=== PATIENT | male | born 1995 | race Hispanic/Latino ===

== ENCOUNTER 2021-04-05 19:28 | Inpatient (IN) | payer SELFPAY ==
[2021-04-05] MEDS ORDERED: ACETAMINOPHEN 500 MG TAB ONE (20:15)
--- NOTE | 2021-04-05 20:33 | ER ---
Nurse's Notes [facility] Name: Richy Lazo Age: 25 yrs Sex: Male : 1995 Arrival Date: 04/05/2021 Time: 19:38 Bed 23 Private MD: Diagnosis: Coronavirus infection, unspecified;Other viral pneumonia;Pneumonia due to SARS-associated coronavirus;Hypoxemia Presentation: 04/05 19:47 Chief complaint: Patient states: he has SOB, fever, cough, congestion, fatigue since bb was diagnosed with COVID today. Coronavirus screen: Client reports previous positive COVID test result. Date of collection: April 05, 2021. Ebola Screen: No symptoms or risks identified at this time. Initial Sepsis Screen: Does the patient meet any 2 criteria? RR > 20 per min. HR > 90 bpm. Yes Does the patient have a suspected source of infection? Yes: Other: pt is COVID positive. Risk Assessment: Do you want to hurt yourself or someone else? Patient reports no desire to harm self or others. Onset of symptoms was March 31, 2021. 19:47 Method Of Arrival: Wheelchair bb 19:47 Acuity: STONEY 2 bb Triage Assessment: 19:50 General: Appears distressed, uncomfortable, Behavior is cooperative. Pain: Denies pain. bb Cardiovascular: Capillary refill < 3 seconds Patient's skin is warm and dry. Respiratory: Reports shortness of breath Respiratory effort is labored, Respiratory pattern is tachypnea Onset: The symptoms/episode began/occurred last , the patient has moderate shortness of breath. Musculoskeletal: Circulation, motion, and sensation intact. Historical: - Allergies: 19:50 No Known Allergies; bb - Home Meds: 19:50 None [Active]; bb - PMHx: 19:50 None; bb - PSHx: 19:50 None; bb - Immunization history:: Adult Immunizations up to date. - Social history:: Smoking status: Patient denies any tobacco usage or history of. Screenin:21 Abuse screen: Denies threats or abuse. Denies injuries from another. Nutritional zb screening: No deficits noted. Tuberculosis screening: No symptoms or risk factors identified. Fall Risk None identified. Assessment: 20:15 General: Appears uncomfortable, obese, Reports chills for 2-3 days, fever for 2-3 days, zb feeling ill for 2-3 days, fatigue for 2-3 days. Pain: Denies pain. Neuro: Level of Consciousness is awake, alert, obeys commands, Oriented to person, place, time, situation. Cardiovascular: Reports shortness of breath, Denies chest pain, nausea, syncope, vomiting, Capillary refill < 3 seconds Patient's skin is warm and dry. Rhythm is sinus tachycardia. Respiratory: Airway is patent Respiratory effort is shallow, Respiratory pattern is tachypnea Breath sounds are diminished bilaterally. Onset: The symptoms/episode began/occurred today, the patient has severe shortness of breath. GI: Abdomen is obese, Bowel sounds present X 4 quads. Reports diarrhea. EENT: Reports nasal congestion. Derm: Skin is intact, is healthy with good turgor, Skin is diaphoretic, Skin is normal, Skin temperature is hot. Musculoskeletal: Circulation, motion, and sensation intact. Range of motion: intact in all extremities. 20:20 Reassessment: patient placed on 2L NC sating at 86-88. zb 20:25 Reassessment: increase o2 5-6L NC sating no change in o2 level sating at 87-89%. zb 20:48 Reassessment: patient placed on non-rebreather to help with breathing. zb 21:10 Reassessment: RT states he was going to leave the patient on Non-rebreather because zb patient is sating between 88-94%. 23:03 Reassessment: notified RT patient is RR is increasing patient is sating at 88-94% on zb non-breather patient appears to be working to breath more. 23:05 Reassessment: Notified ECP of patient swearing, increased work of breathing and low zb saturations with non-breather. sating between 89-93%. Verbal order for BPAP. 23:09 Reassessment: Notified RT of ECP order for BPAP. zb 23:25 Reassessment: patient placed on on BIPAP and moved over to room #23. zb Vital Signs: 19:47 BP 138 / 87; Pulse 126; Resp 38 S; Temp 102.2; Pulse Ox 87% on R/A; Weight 136.08 kg bb (R); Height 5 ft. 8 in. (172.72 cm) (R); Pain 0/10; 20:20 BP 122 / 109; Pulse 123; Resp 35; Pulse Ox 89% 2 lpm ; zb 20:48 Pulse 111; Resp 32; Pulse Ox 96% on 14% Non-rebreather mask; zb 23:04 BP 114 / 67; Pulse 101; Resp 34; Temp 98.9; Pulse Ox 92% on 15% Nebulizer Mask; zb 04/07 20:49 BP 110 / 74; Pulse 89; Resp 26; Temp 98.8; Pulse Ox 98% ; ak2 04/05 19:47 Body Mass Index 45.61 (136.08 kg, 172.72 cm) bb ED Course: 04/05 19:38 Patient arrived in ED. am4 19:50 Triage completed. bb 19:50 Arm band placed on Patient placed in an exam room, on a stretcher, on oxygen, on pulse bb oximetry. Family accompanied patient. 19:55 Gilson Reyna MD is Attending Physician. tw4 20:10 Sandra Simon RN is Primary Nurse. zb 20:22 CXR XRAY In Process Unspecified. EDMS 20:22 Patient has correct armband on for positive identification. Placed in gown. Bed in low zb position. Call light in reach. Side rails up X 1. Pulse ox on. NIBP on. Door closed. Noise minimized. 20:31 Edward Catherine DO is Hospitalizing Provider. tw4 21:00 Inserted saline lock: 20 gauge in right antecubital area, using aseptic technique. dh4 Blood collected. Missed attempt(s): 20 gauge in left antecubital area. 22:50 IV was discontinued by the patient. zb 23:00 Report given to DREW Jonas. zb 23:03 Inserted saline lock: 22 gauge in right antecubital area, using aseptic technique. zb Administered Medications: 20:08 Drug: Tylenol 1000 mg Route: PO; bb 20:41 Drug: NS 0.9% 1000 ml Route: IV; Rate: 1 bolus; Site: right antecubital; zb 21:30 Follow up: Response: No adverse reaction; IV Status: Completed infusion; IV Intake: zb 1000ml 20:41 Drug: SOLU-Medrol (methylPrednisoLONE) 125 mg Route: IVP; Site: right antecubital; zb 21:20 Follow up: Response: No adverse reaction; Marked relief of symptoms zb Intake: 21:30 IV: 1000ml; Total: 1000ml. zb Outcome: 20:32 Decision to Hospitalize by Provider. tw4 04/08 22:04 Patient left the ED. iw Signatures: Dispatcher [employer] EDKrystyna Kulkarni RN RN bb Williams, Irene, RN RN iw Wadley, Terrence, MD MD tw4 Vargas Tan4 Sandra Simon RN RN zb Martinez, Ashley 4 César Mays sc2 Corrections: (The following items were deleted from the chart) 04/05 21:15 21:05 Reassessment: RT paged patient placed on a ventri mask stating at 95% zb zb 23:39 23:04 BP 114 / 67; Pulse 101bpm; Resp 34bpm; Pulse Ox 92% 02 15% Nebulizer Mask; zb zb 04/06 00:08 04/05 23:00 Report given to DREW Cortesb
[2021-04-05] MEDS ORDERED: NA CHLORIDE 0.9% 1,000 ML ONE (20:46)
[2021-04-05] MEDS ORDERED: METHYLPREDNISOLONE 125 MG INJ ONE (20:46)
--- NOTE | 2021-04-05 21:00 | RAD REPORT ---
EXAM DESCRIPTION: RAD - Chest Single View - 04/05/2021 8:22 pm CLINICAL HISTORY: COUGH COMPARISON: Two view chest August 2016 TECHNIQUE: AP portable chest image was obtained 04/05/2021 8:22 pm . FINDINGS: Lung volumes are very low. Linear stranding could be atelectasis or possibly infiltrate in the lower left lung field. Upper lobe vasculature within normal limits. Heart size within normal orellana its for exam limitations. No pneumothorax or large pleural effusion. No acute bony abnormality seen. No acute aortic findings suspected. IMPRESSION: Portable examination is extremely limited due to body habitus and very low lung volumes. Atelectasis is present. A left base infiltrate cannot be excluded.
[2021-04-05 21:29] LABS: Albumin 3.3 g/dL (3.4-5.0); Bilirubin Direct 0.2 mg/dL (0-0.2); Bilirubin Total 0.5 mg/dL (0.2-1.0); Potassium 3.2 mmol/L (3.5-5.1); Protein, Total 9.2 g/dL (6.4-8.2)
[2021-04-05 22:01] LABS: Ferritin 881.2 ng/mL (26-388)
[2021-04-05 23:00] VITALS: BMI 45.6
[2021-04-05] MEDS ORDERED: MELATONIN 5 MG TABLET PO PRN (23:02)
[2021-04-05] MEDS ORDERED: ONDANSETRON 4 MG/2 ML VIAL IV PRN (23:02)
[2021-04-05] MEDS ORDERED: ACETAMINOPHEN 500 MG TAB PO PRN (23:02)
[2021-04-05] MEDS ORDERED: HYDROCODONE/APAP 7.5/325 MG TAB PO PRN (23:02)
--- NOTE | 2021-04-06 00:26 | P.HP ---
Certification for Inpatient Patient admitted to: Inpatient With expected LOS: >2 Midnights Patient will require the following post-hospital care: None Practitioner: I am a practitioner with admitting privileges, knowledge of patient current condition, hospital course, and medical plan of care. Services: Services provided to patient in accordance with Admission requirements found in Title 42 Section 412.3 of the Code of Federal Regulations Patient History Date of Service: 04/05/21 Reason for admission: COVID pneumonia History of Present Illness: 25-year-old obese male without any significant past medical or surgical history presents emergency department for shortness of breath. Patient reports not feeling well since last , had COVID test today and was positive. Patient evaluated in the emergency department, patient noted to be hypoxic upon arrival to the emergency department with room air saturations in the 80s. Labs significant for potassium 3.2 creatinine 1.47 GFR 57 glucose 119 ferritin 881.2 C-reactive protein 105 pro calcitonin 0.08 chest x-ray demonstrates multifocal pneumonia. Patient initially was on nasal cannula but progressing required more oxygen during his emergency department stay and is now on BiPAP although he is tolerating this well at this time. ED provider wishes to admit for further evaluation and management. Allergies No Known Allergies Allergy (Verified 04/05/21 23:01) Home Medications: NK [No Home Meds] 04/05/21 - Past Medical/Surgical History -: none -: none Psychosocial/ Personal History: Patient lives at home with his family - Family History Father History Unknown: Yes - Social History Smoking Status: Never smoker Alcohol use: No CD- Drugs: No Caffeine use: Yes Place of Residence: Home Review of Systems 10-point ROS is otherwise unremarkable General: Fever, Chills, Weakness, Malaise Respiratory: Cough, Shortness of Breath, SOB with Excertion Physical Examination - Physical Exam General: Alert, In no apparent distress, Oriented x3 HEENT: Atraumatic, PERRLA, Mucous membr. moist/pink, EOMI, Sclerae nonicteric Neck: Supple, 2+ carotid pulse no bruit, No LAD, Without JVD or thyroid abnormality Respiratory: Clear to auscultation bilaterally, Diminished, Other (Tachypnea, dyspnea) Cardiovascular: Regular rate/rhythm, Normal S1 S2 Gastrointestinal: Normal bowel sounds, No tenderness Musculoskeletal: No tenderness Integumentary: No rashes Neurological: Normal gait, Normal speech, Normal strength at 5/5 x4 extr, Normal tone, Normal affect Lymphatics: No axilla or inguinal lymphadenopathy - Studies Laboratory Data (last 24 hrs) 04/05/21 20:45: Sodium 136, Potassium 3.2 L, BUN 18, Creatinine 1.47 H, Glucose 119 H, Total Bilirubin 0.5, AST 43 H, ALT 31, Alkaline Phosphatase 52, Lipase 233 04/05/21 19:56: WBC Cancelled, Hgb Cancelled, Hct Cancelled, Plt Count Cancelled Assessment and Plan - Plan Assessment Acute hypoxic respiratory failure secondary to COVID-19 pneumonia Plan Acute hypoxic respiratory failure secondary to COVID-19 pneumonia: Continue with supplemental oxygen as needed, titrate sats greater than 93%. Continue IV steroids, oral supplements, ivermectin. Pulmonology consulted for additional assistance with medical management. Will trend CRP, ferritin levels. DVT prophylaxis Lovenox 40 mg subcutaneous once daily. Patient will likely have prolonged hospital stay. Discharge Plan: Home Plan to discharge in: Greater than 2 days - Advance Directives Does patient have a Living Will: No Does patient have a Durable POA for Healthcare: No - Code Status/Comfort Care Code Status Assessed: Yes Critical Care: No Time Spent Managing Pts Care (In Minutes): 55
[2021-04-06 01:01] LABS: Absolute Lymphocytes (CBC) 0.6 K/uL (0.7-4.9); Basophils % 0.2 % (0-1.3); Hematocrit 38.7 % (39.6-49.0); Lymphocytes % 9.6 % (15.3-44.8); MPV 9.8 fL (7.6-11.3)
[2021-04-06 02:27] LABS: Blood Morphology Comment NOT SEEN (NOT SEEN); Platelet Estimate ADEQ
[2021-04-06 07:05] LABS: Bilirubin Total 0.4 mg/dL (0.2-1.0); Ferritin 884.1 ng/mL (26-388); Magnesium 2.7 mg/dL (1.8-2.4); Potassium 3.9 mmol/L (3.5-5.1); Protein, Total 8.5 g/dL (6.4-8.2)
[2021-04-06] MEDS ORDERED: ASPIRIN 81 MG CHEWABLE TABLET ONE (08:15)
[2021-04-06] MEDS ORDERED: VITAMIN D 1000 UNIT TAB ONE ×2 (08:15→09:27)
[2021-04-06] MEDS ORDERED: HYDROCORTISONE SUC 100 MG INJ ONE (08:15)
[2021-04-06] MEDS ORDERED: ZINC SULFATE 220 MG CAP ONE (08:15)
[2021-04-06] MEDS ORDERED: ASCORBIC ACID 500 MG TABLET ONE ×4 (08:15→20:27)
[2021-04-06] MEDS ORDERED: THIAMINE HCL 100 MG TABLET ONE ×2 (08:15→09:28)
[2021-04-06] MEDS ORDERED: ENOXAPARIN 40 MG/0.4 ML SQ ONE (08:16)
[2021-04-06] MEDS ORDERED: POTASSIUM CL SA 10 MEQ TAB PO ONE ×2 (08:17→09:00)
[2021-04-06] MEDS ORDERED: METHYLPREDNISOLONE 40 MG INJ IV SCH (09:00)
[2021-04-06] MEDS: ASPIRIN EC 81 MG TAB PO SCH (09:00)
[2021-04-06] MEDS ORDERED: ENOXAPARIN 40 MG/0.4 ML SQ SCH (09:00)
[2021-04-06] MEDS: THIAMINE HCL 100 MG TABLET PO SCH (09:03)
[2021-04-06] MEDS: VITAMIN D 1000 UNIT TAB PO SCH (09:03)
[2021-04-06] MEDS: ZINC SULFATE 220 MG CAP PO SCH (09:03)
[2021-04-06] MEDS: ASCORBIC ACID 500 MG TABLET PO SCH ×4 (09:04→20:16)
[2021-04-06] MEDS: IVERMECTIN 3 MG TABLET PO SCH (09:05)
[2021-04-06] MEDS ORDERED: METHYLPREDNISOLONE 40 MG INJ ONE ×3 (09:27→20:27)
[2021-04-06] MEDS: BENZONATATE 100 MG CAP PO PRN (09:35)
[2021-04-06] MEDS ORDERED: BENZONATATE 100 MG CAP PO ONE (09:37)
--- NOTE | 2021-04-06 11:22 | P.PN ---
Subjective Date of Service: 04/06/21 Primary Care Provider: none Chief Complaint: COVID pneumonia Subjective: Improving (Currently on BIPAP) Physical Examination - Vital Signs Temperature: 98.3 F Blood Pressure: 113/63 Pulse: 103 Respirations: 26 Pulse Ox (%): 92 - Studies Laboratory Data (last 24 hrs) 04/05/21 20:45: Sodium 136, Potassium 3.2 L, BUN 18, Creatinine 1.47 H, Glucose 119 H, Total Bilirubin 0.5, AST 43 H, ALT 31, Alkaline Phosphatase 52, Lipase 233 04/05/21 19:56: WBC Cancelled, Hgb Cancelled, Hct Cancelled, Plt Count Cancelled Assessment & Plan Discharge Plan: Home Plan to discharge in: Greater than 2 days Physician Review Additional Text: Physical exam: Currently on BiPAP at 100%. Patient does not appear labored. Heart: Regular rate rhythm Lungs: Clear. On BiPAP Abdomen: Soft nontender Extremities: Good range motion to upper lower extremities without any focal deficits. Mentation: Appropriate and at baseline Impression: Acute hypoxic respiratory failure secondary to COVID-19 pneumonia Hyperglycemia suspect pre diabetes Obesity, BMI 45.6 Plan Acute hypoxic respiratory failure secondary to COVID-19 pneumonia: Continue with oxygen. Will wean down to high-flow oxygen. Continue IV steroids, supplements, ivermectin. Case discussed with pulmonology. Will monitor for the next 24 hr. Likely no need for Remdesivir or Acterma. Continue DVT prophylaxis-Lovenox. Will monitor the patient closely. If his condition declines will consider Remdesivir. Education provided. Will continue to monitor closely. Will trend CRP and ferritin. Will continue to reassess. Anticipate improvement over the next 3-5 days. Hyperglycemia suspect pre diabetes: Will check A1c. Blood sugar slightly elevated. Will monitor this closely Obesity, BMI 45.6: Will address lifestyle modification education. Time Spent Managing Pts Care (In Minutes): 55
[2021-04-06 11:33] LABS: Urine Appearance CLOUDY (Clear); Urine Bilirubin NEGATIVE (Negative); Urine Blood NEGATIVE (Negative); Urine Color DK YELLOW (Yellow); Urine Glucose NEGATIVE (Negative); Urine Protein 3+ (Negative); Urine Specific Gravity >=1.030 (1.005-1.030); Urine Urobilinogen 0.2 mg/dL (0.2-1.0); Urine pH 5.5 (5.0-7.0)
[2021-04-06 11:35] LABS: Urine Microscopic Reflex ORDER UMIC
[2021-04-06 11:45] LABS: Urine Bacteria 20-50 /HPF (NONE SEEN); Urine RBC NONE SEEN /HPF (NONE SEEN)
[2021-04-06] MEDS: METHYLPREDNISOLONE 125 MG INJ IV SCH ×3 (12:18→20:16)
--- NOTE | 2021-04-06 12:25 | P.CNS ---
Date of Consult: 04/06/21 Reason for Consult: REsp failure from COVID Primary Care Provider: none Chief Complaint: COVID pneumonia History of Present Illness: AGE 25 AW resp failure from COVID. REnal failure . Currently on BIPAP doign well Allergies No Known Allergies Allergy (Verified 04/05/21 23:01) Home Medications: NK [No Home Meds] 04/05/21 - Past Medical/Surgical History Diabetic: No -: none -: none Psychosocial/ Personal History: Patient lives at home with his family - Family History Mother Medical History: Diabetes Father History Unknown: Yes - Social History Alcohol use: No CD- Drugs: No Caffeine use: Yes Place of Residence: Home Review of Systems Respiratory: Cough, Shortness of Breath Physical Examination Temp Pulse Resp BP Pulse Ox 98.3 F 103 H 26 H 113/63 92 04/06/21 11:22 04/06/21 11:22 04/06/21 11:22 04/06/21 11:22 04/06/21 11:22 Laboratory Data (last 24 hrs) 04/05/21 20:45: Sodium 136, Potassium 3.2 L, BUN 18, Creatinine 1.47 H, Glucose 119 H, Total Bilirubin 0.5, AST 43 H, ALT 31, Alkaline Phosphatase 52, Lipase 233 04/05/21 19:56: WBC Cancelled, Hgb Cancelled, Hct Cancelled, Plt Count Cancelled - Problems (1) COVID-19 Current Visit: Yes Status: Acute Plan: Age 25 AW resp failure from COVID. Cont to titrate O2 daowm Sima Steroids, add Remdesmir. CXRY reviewed. Fully anticoagualte. Reanl failureRenal failure Start on IV fluids, Poss DC 1-2 days
[2021-04-06] MEDS ORDERED: METHYLPREDNISOLONE 125 MG INJ ONE (12:37)
[2021-04-06] MEDS ORDERED: REMDESIVIR (EUA) 200 MG in NA CHLORIDE 0.9% 250 ML IV ONE (13:00)
[2021-04-06] MEDS: NACHLORIDE 0.45% 1,000 ML IV SCH (13:04)
[2021-04-06] MEDS ORDERED: NACHLORIDE 0.45% 1,000 ML IV ONE (13:15)
[2021-04-06] MEDS ORDERED: GUAIFENESIN 600 MG SA TAB PO ONE ×2 (19:19→20:28)
[2021-04-06] MEDS: APIXABAN 5 MG TABLET PO SCH (20:16)
[2021-04-06] MEDS ORDERED: APIXABAN 5 MG TABLET ONE (20:27)
[2021-04-07] MEDS: BENZONATATE 100 MG CAP PO PRN ×2 (01:40→20:44)
[2021-04-07] MEDS: NACHLORIDE 0.45% 1,000 ML IV SCH ×2 (01:42→13:12)
[2021-04-07] MEDS ORDERED: BENZONATATE 100 MG CAP PO ONE ×2 (01:58→20:49)
[2021-04-07] MEDS ORDERED: NACHLORIDE 0.45% 1,000 ML IV ONE ×2 (02:01→12:30)
[2021-04-07 04:32] LABS: Absolute Lymphocytes (CBC) 0.8 K/uL (0.7-4.9); Basophils % 0.1 % (0-1.3); Hematocrit 34.9 % (39.6-49.0); Lymphocytes % 6.8 % (15.3-44.8); MPV 10.1 fL (7.6-11.3); RBC Red Blood Cell Count 3.98 M/uL (4.33-5.43)
[2021-04-07 04:47] LABS: Albumin 2.7 g/dL (3.4-5.0); Bilirubin Direct 0.1 mg/dL (0-0.2); Bilirubin Total 0.4 mg/dL (0.2-1.0); C-Reactive Protein 56.8 mg/L (<3.00); Ferritin 822.7 ng/mL (26-388); Magnesium 2.6 mg/dL (1.8-2.4); Potassium 3.7 mmol/L (3.5-5.1); Protein, Total 7.7 g/dL (6.4-8.2)
[2021-04-07] MEDS: VITAMIN D 1000 UNIT TAB PO SCH (08:21)
[2021-04-07] MEDS: ZINC SULFATE 220 MG CAP PO SCH (08:22)
[2021-04-07] MEDS: ASPIRIN EC 81 MG TAB PO SCH (08:22)
[2021-04-07] MEDS: ASCORBIC ACID 500 MG TABLET PO SCH ×4 (08:22→20:44)
[2021-04-07] MEDS: THIAMINE HCL 100 MG TABLET PO SCH (08:22)
[2021-04-07] MEDS: APIXABAN 5 MG TABLET PO SCH ×2 (08:22→20:43)
[2021-04-07] MEDS: METHYLPREDNISOLONE 125 MG INJ IV SCH ×3 (08:23→20:44)
[2021-04-07] MEDS ORDERED: THIAMINE HCL 100 MG TABLET ONE (08:26)
[2021-04-07] MEDS ORDERED: METHYLPREDNISOLONE 125 MG INJ ONE ×2 (08:26→12:28)
[2021-04-07] MEDS ORDERED: ZINC SULFATE 220 MG CAP ONE (08:26)
[2021-04-07] MEDS ORDERED: ASPIRIN EC 81 MG TAB PO ONE (08:26)
[2021-04-07] MEDS ORDERED: ASCORBIC ACID 500 MG TABLET ONE ×4 (08:27→20:49)
[2021-04-07] MEDS ORDERED: POTASSIUM CL SA 10 MEQ TAB PO ONE ×2 (08:27→09:00)
[2021-04-07] MEDS ORDERED: VITAMIN D 1000 UNIT TAB ONE (08:27)
[2021-04-07] MEDS ORDERED: APIXABAN 5 MG TABLET ONE ×2 (08:27→20:49)
[2021-04-07] MEDS ORDERED: ACETAMINOPHEN 500 MG TAB ONE (08:35)
[2021-04-07] MEDS: REMDESIVIR (EUA) 100 MG in NA CHLORIDE 0.9% 250 ML IV SCH (08:49)
[2021-04-07] MEDS ORDERED: REMDESIVIR (EUA) 100 MG in NA CHLORIDE 0.9% 250 ML IV SCH (09:00)
--- NOTE | 2021-04-07 13:03 | P.PN ---
Subjective Date of Service: 04/07/21 Primary Care Provider: none Chief Complaint: COVID pneumonia Subjective: Improving (Improving doing better sitting upright conversing oxygen requirements are declining) Review of Systems General: Weakness Respiratory: Shortness of Breath Physical Examination - Vital Signs Temperature: 98.6 F Blood Pressure: 114/71 Pulse: 100 Respirations: 24 Pulse Ox (%): 91 Assessment & Plan - Problems (Diagnosis) (1) COVID-19 Current Visit: Yes Status: Acute Plan: Respiratory failure patient's condition is improving continue titrate his O2 down renal function improving vital signs labs reviewed
--- NOTE | 2021-04-07 14:26 | P.PN ---
Subjective Date of Service: 04/07/21 Primary Care Provider: none Chief Complaint: COVID pneumonia Subjective: Improving, Doing well Physical Examination - Vital Signs Temperature: 98.6 F Blood Pressure: 114/71 Pulse: 100 Respirations: 24 Pulse Ox (%): 91 Assessment & Plan Discharge Plan: Home Plan to discharge in: 72 Hours Physician Review Additional Text: Physical exam: Patient has been tapered off BiPAP. Now on high flow at 80%. Patient does not appear labored. Heart: Regular rate rhythm Lungs: Clear. High flow Abdomen: Soft nontender Extremities: Good range motion to upper lower extremities without any focal deficits. Mentation: Appropriate and at baseline Impression: Acute hypoxic respiratory failure secondary to COVID-19 pneumonia Hyperglycemia suspect pre diabetes Acute renal insufficiency likely dehydration Obesity, BMI 45.6 Plan Acute hypoxic respiratory failure secondary to COVID-19 pneumonia: Patient continues to improve. Patient has been weaned off BiPAP now on high flow. Continue IV steroids and supplementation. Pulmonology recommends remdesivir. Continue with medication. Will monitor closely. Continue to wean off oxygen. DVT prophylaxis changed to Eliquis. Will monitor LFTs while on remdesivir. Continue to monitor and trend CRP and ferritin. Recheck chest x-ray tomorrow. Anticipate improvement over the next 72 hours. Hyperglycemia suspect pre diabetes: Will check A1c. Blood sugar slightly elevated. Will monitor this closely Acute renal insufficiency likely dehydration: Continue IV fluids. Renal function improved. Will monitor closely. Obesity, BMI 45.6: Will address lifestyle modification education. Time Spent Managing Pts Care (In Minutes): 55
[2021-04-07] MEDS ORDERED: METHYLPREDNISOLONE 40 MG INJ ONE (20:49)
[2021-04-08] MEDS ORDERED: NACHLORIDE 0.45% 1,000 ML IV ONE (01:18)
[2021-04-08] MEDS: NACHLORIDE 0.45% 1,000 ML IV SCH (05:00)
[2021-04-08 05:55] LABS: Absolute Lymphocytes (CBC) 0.9 K/uL (0.7-4.9); Basophils % 0.1 % (0-1.3); Hematocrit 33.2 % (39.6-49.0); Lymphocytes % 7.2 % (15.3-44.8); MPV 9.5 fL (7.6-11.3); RBC Red Blood Cell Count 3.79 M/uL (4.33-5.43)
[2021-04-08 06:21] LABS: ALT/SGPT 39 U/L (12-78); AST/SGOT 32 U/L (15-37); Albumin 2.6 g/dL (3.4-5.0); Alkaline Phosphatase 47 U/L (45-117); BUN Blood Urea Nitrogen 33 mg/dL (7-18); Bicarbonate 26 mmol/L (21-32); Bilirubin Direct 0.1 mg/dL (0-0.2); Bilirubin Total 0.4 mg/dL (0.2-1.0); Ferritin 631.2 ng/mL (26-388); Glucose Level 137 mg/dL (74-106); Magnesium 2.6 mg/dL (1.8-2.4); Potassium 3.8 mmol/L (3.5-5.1); Sodium Level 143 mmol/L (136-145)
[2021-04-08] MEDS ORDERED: GUAIFENESIN/CODEINE 5ML UCUP PO PRN (06:30)
[2021-04-08 07:41] LABS: Blood Morphology Comment NOT SEEN (NOT SEEN); Platelet Estimate ADEQ; White Blood Cell Scan OK (OK)
[2021-04-08] MEDS: IVERMECTIN 3 MG TABLET PO SCH (08:00)
--- NOTE | 2021-04-08 08:29 | RAD REPORT ---
EXAM DESCRIPTION: RAD - Chest Single View - 04/08/2021 6:02 am CLINICAL HISTORY: Follow up COVID Chest pain. COMPARISON: Chest Single View dated 04/05/2021; Chest Pa And Lat (2 Views) dated 09/13/2016 FINDINGS: Portable technique limits examination quality. Significant bilateral pulmonary opacities are present, mildly worsened since the comparative study. T he findings are most compatible with underlying COVID infection. The heart is mildly prominent in siz e. No displaced fractures.
[2021-04-08] MEDS: METHYLPREDNISOLONE 125 MG INJ IV SCH ×3 (09:00→21:00)
[2021-04-08] MEDS: ASPIRIN EC 81 MG TAB PO SCH (09:00)
[2021-04-08] MEDS: THIAMINE HCL 100 MG TABLET PO SCH (09:00)
[2021-04-08] MEDS: REMDESIVIR (EUA) 100 MG in NA CHLORIDE 0.9% 250 ML IV SCH (09:00)
[2021-04-08] MEDS ORDERED: POTASSIUM CL SA 10 MEQ TAB PO ONE ×2 (09:00→09:39)
[2021-04-08] MEDS: ZINC SULFATE 220 MG CAP PO SCH (09:00)
[2021-04-08] MEDS: VITAMIN D 1000 UNIT TAB PO SCH (09:00)
[2021-04-08] MEDS: APIXABAN 5 MG TABLET PO SCH ×2 (09:00→21:00)
[2021-04-08] MEDS: ASCORBIC ACID 500 MG TABLET PO SCH ×5 (09:00→22:26)
[2021-04-08] MEDS ORDERED: ASPIRIN EC 81 MG TAB PO ONE (09:38)
[2021-04-08] MEDS ORDERED: ZINC SULFATE 220 MG CAP ONE (09:38)
[2021-04-08] MEDS ORDERED: VITAMIN D 1000 UNIT TAB ONE (09:39)
[2021-04-08] MEDS ORDERED: ASCORBIC ACID 500 MG TABLET ONE ×4 (09:39→21:19)
[2021-04-08] MEDS ORDERED: APIXABAN 5 MG TABLET ONE ×2 (09:39→21:19)
[2021-04-08] MEDS ORDERED: METHYLPREDNISOLONE 40 MG INJ ONE ×3 (09:40→21:19)
[2021-04-08] MEDS ORDERED: THIAMINE HCL 100 MG TABLET ONE (10:17)
[2021-04-08] MEDS ORDERED: FUROSEMIDE 20 MG/ 2ML VIAL IV ONE (11:58)
--- NOTE | 2021-04-08 11:59 | P.PN ---
Subjective Date of Service: 04/08/21 Primary Care Provider: none Chief Complaint: COVID pneumonia Not doing well patient is worsening still requiring very high concentrations of oxygen desat on minimal exertion Review of Systems General: Weakness Respiratory: Shortness of Breath Physical Examination - Vital Signs Temperature: 98.8 F Blood Pressure: 126/74 Pulse: 92 Respirations: 20 Pulse Ox (%): 93 Assessment & Plan - Problems (Diagnosis) (1) COVID-19 Current Visit: Yes Status: Acute Plan: Respiratory failure is condition is not improving still requiring high concentrations of oxygen of ordered IV Actemra labs reviewed trial of low-dose of Lasix titrate O2 to a sat of 90% prone positioning
[2021-04-08] MEDS ORDERED: TOCILIZUMAB 800 MG in NA CHLORIDE 0.9% 60 ML IV ONE (17:00)
--- NOTE | 2021-04-08 17:15 | P.PN ---
Subjective Date of Service: 04/08/21 Primary Care Provider: none Chief Complaint: COVID pneumonia Subjective: Other (slow improvement) Physical Examination - Vital Signs Temperature: 98.8 F Blood Pressure: 123/84 Pulse: 52 Respirations: 13 Pulse Ox (%): 97 Assessment & Plan Discharge Plan: Home Plan to discharge in: Greater than 2 days Physician Review Additional Text: Physical exam: Patient has been tapered off BiPAP. Now on high flow at 80%. Patient does not appear labored. Heart: Regular rate rhythm Lungs: Clear. High flow Abdomen: Soft nontender Extremities: Good range motion to upper lower extremities without any focal deficits. Mentation: Appropriate and at baseline Impression: Acute hypoxic respiratory failure secondary to COVID-19 pneumonia Hyperglycemia suspect pre diabetes Acute renal insufficiency likely dehydration Obesity, BMI 45.6 Plan Acute hypoxic respiratory failure secondary to COVID-19 pneumonia: Patient continues to improve. Patient has been weaned off BiPAP now on high flow. Pulmonary plans to start Acterma. Continue to wean off HF. Continue IV steroids and supplementation. Pulmonology recommends to DC remdesivir. Continue with medication. Will monitor closely. Continue to wean off oxygen. DVT prophylaxis changed to Eliquis. Continue to monitor and trend CRP and ferritin. Recheck chest x-ray tomorrow. Anticipate improvement over the next 72 hours. Hyperglycemia suspect pre diabetes: Blood sugar slightly elevated. Will monitor this closely Acute renal insufficiency likely dehydration: Continue IV fluids. Renal function improved. Will monitor closely. Obesity, BMI 45.6: Will address lifestyle modification education. Time Spent Managing Pts Care (In Minutes): 55
--- NOTE | 2021-04-08 22:05 | EDPHYS ---
Physician Documentation [facility] Name: Richy Lazo Age: 25 yrs Sex: Male : 1995 Arrival Date: 04/05/2021 Time: 19:38 Bed 23 Private MD: ED Physician Gilson Reyna Historical: - Allergies: 04/05 19:50 No Known Allergies; bb - Home Meds: 19:50 None [Active]; bb - PMHx: 19:50 None; bb - PSHx: 19:50 None; bb - Immunization history:: Adult Immunizations up to date. - Social history:: Smoking status: Patient denies any tobacco usage or history of. Vital Signs: 19:47 BP 138 / 87; Pulse 126; Resp 38 S; Temp 102.2; Pulse Ox 87% on R/A; Weight 136.08 kg bb (R); Height 5 ft. 8 in. (172.72 cm) (R); Pain 0/10; 20:20 BP 122 / 109; Pulse 123; Resp 35; Pulse Ox 89% 2 lpm ; zb 20:48 Pulse 111; Resp 32; Pulse Ox 96% on 14% Non-rebreather mask; zb 23:04 BP 114 / 67; Pulse 101; Resp 34; Temp 98.9; Pulse Ox 92% on 15% Nebulizer Mask; zb 05 20:49 BP 110 / 74; Pulse 89; Resp 26; Temp 98.8; Pulse Ox 98% ; ak2 04/05 19:47 Body Mass Index 45.61 (136.08 kg, 172.72 cm) bb MDM: 04/05 20:09 Patient medically screened. 4 04/05 19:56 Order name: Basic Metabolic Panel [facility] 04/05 19:56 Order name: CBC with Diff 04/05 19:56 Order name: Hepatic Function; Complete Time: 02:06 [facility] 04/05 19:56 Order name: Lipase; Complete Time: 02:06 [facility] 04/05 19:57 Order name: Basic Metabolic Panel; Complete Time: 02:06 EDIL 04/05 20:09 Order name: CRP; Complete Time: 02:06 04/05 20:09 Order name: Ferritin; Complete Time: 02:06 iw 04/05 20:10 Order name: Procalcitonin; Complete Time: 02:06 iw 04/05 20:33 Order name: Lactate; Complete Time: 02:06 tw4 04/06 01:02 Order name: CBC with Automated Diff EDMS 04/06 02:27 Order name: Manual Differential EDMS 04/06 07:05 Order name: Comprehensive Metabolic Panel EDMS 04/06 07:05 Order name: C-Reactive Protein EDMS 04/06 07:05 Order name: Magnesium EDMS 04/06 07:05 Order name: Ferritin EDMS 04/06 11:36 Order name: Urinalysis EDMS 04/06 11:45 Order name: Urine Microscopic Only EDMS 04/07 04:42 Order name: CBC with Automated Diff EDMS 04/07 04:48 Order name: Comprehensive Metabolic Panel EDMS 04/07 04:48 Order name: Liver (Hepatic) Function EDMS 04/07 04:48 Order name: C-Reactive Protein EDMS 04/07 04:48 Order name: Magnesium EDMS 04/07 04:48 Order name: Ferritin EDMS 04/07 07:42 Order name: Urine Culture EDMS 04/07 12:24 Order name: Lactate EDMS 04/08 06:01 Order name: CBC with Automated Diff EDMS 04/08 06:22 Order name: Comprehensive Metabolic Panel EDMS 04/08 06:22 Order name: Liver (Hepatic) Function EDMS 04/08 06:22 Order name: C-Reactive Protein EDMS 04/08 06:22 Order name: Magnesium EDMS 04/05 19:56 Order name: CXR XRAY; Complete Time: 02:06 tw4 04/05 19:56 Order name: IV Saline Lock; Complete Time: 21:00 4 04/05 19:56 Order name: Labs collected and sent; Complete Time: 21:00 tw4 04/08 06:22 Order name: Ferritin EDMS 04/08 06:32 Order name: Hemoglobin A1c EDMS 04/08 07:41 Order name: CBC Smear Scan EDMS 04/08 08:30 Order name: RAD EDMS Administered Medications: 20:08 Drug: Tylenol 1000 mg Route: PO; bb 20:41 Drug: NS 0.9% 1000 ml Route: IV; Rate: 1 bolus; Site: right antecubital; zb 21:30 Follow up: Response: No adverse reaction; IV Status: Completed infusion; IV Intake: zb 1000ml 20:41 Drug: SOLU-Medrol (methylPrednisoLONE) 125 mg Route: IVP; Site: right antecubital; zb 21:20 Follow up: Response: No adverse reaction; Marked relief of symptoms zb Disposition: 04/05/21 20:32 Hospitalization ordered by Edward Catherine for Inpatient Admission. Preliminary diagnosis are Coronavirus infection, unspecified, Other viral pneumonia, Pneumonia due to SARS-associated coronavirus, Hypoxemia. - Bed requested for Intensive Care Unit. - Status is Inpatient Admission. iw - Condition is Stable. - Problem is new. - Symptoms have worsened. Addendum: 04/27/2021 18:50 Addendum: HPI: Pt is a 25 year old male recently diagnosed with Covid come s to the Ed t w4 with complaint of SOB, fever. Pt states that his symptoms have steadily been getting worse. . Addendum: ROS: constitutional: positive for fever and chills, fatigue neg night sweats Resp: positive for SOB, LYNN, cough neg for sputum CV; negative for CP palpitations all other systems negative except as marked. 18:53 Addendum: PE: Gen: well-developed well nourished male in mild distress HEENT: PERRLA, t w4 EOMI resp: mild distress, BS decreased bilaterally CV; nl S1,S2 tachycardia no murmurs no gallops Abdomen; ND, NT nl BS Ext: no edema nontender Neuro: alert and oriented times three CN grossly intact sensation and reflexes grossly intact. Signatures: Dispatcher [employer] EDMS Mylene Armstrong RN Krystyna Martínez RN RN bb Williams, Irene, RN RN iw Rasheed Navarrete, POLICE STENOGRAPHER-C POLICE STENOGRAPHER-Cla1 Danielle Weldon, Gilson Campa RN, MD MD tw4 Sandra Simon RN RN zb Corrections: (The following items were deleted from the chart) 04/05 20:33 20:32 Hospitalization Ordered by Edward Catherine DO for Inpatient Admission. Preliminary tw4 diagnosis is Coronavirus infection, unspecified; Other viral pneumonia; Pneumonia due to SARS-associated coronavirus. Bed requested for Telemetry/MedSurg (Inpatient). Status is Inpatient Admission. Condition is Stable. Problem is new. Symptoms have worsened. tw4 20:34 20:33 04/05/2021 20:32 Hospitalization Ordered by Edward Catherine DO for Inpatient mw Admission. Preliminary diagnosis is Coronavirus infection, unspecified; Other viral pneumonia; Pneumonia due to SARS-associated coronavirus; Hypoxemia. Bed requested for Telemetry/MedSurg (Inpatient). Status is Inpatient Admission. Condition is Stable. Problem is new. Symptoms have worsened. 4 20:35 20:34 04/05/2021 20:32 Hospitalization Ordered by EdwardLinda HILL for Inpatient mw Admission. Preliminary diagnosis is Coronavirus infection, unspecified; Other viral pneumonia; Pneumonia due to SARS-associated coronavirus. Bed requested for [facility] ER HOLD. Status is Inpatient Admission. Condition is Stable. Problem is new. Symptoms have worsened. 04/08 19:50 04/05 20:35 04/05/2021 20:32 Hospitalization Ordered by Edward Catherine DO for Inpatient cg Admission. Preliminary diagnosis is Coronavirus infection, unspecified; Other viral pneumonia; Pneumonia due to SARS-associated coronavirus; Hypoxemia. Bed requested for [facility] ER HOLD. Status is Inpatient Admission. Condition is Stable. Problem is new. Symptoms have worsened. 04/08 22:04 19:50 04/05/2021 20:32 Hospitalization Ordered by Edward Catherine DO for Inpatient iw Admission. Preliminary diagnosis is Coronavirus infection, unspecified; Other viral pneumonia; Pneumonia due to SARS-associated coronavirus; Hypoxemia. Bed requested for Intensive Care Unit. Status is Inpatient Admission. Condition is Stable. Problem is new. Symptoms have worsened.
[2021-04-09 04:58] LABS: Hematocrit 35.1 % (39.6-49.0); Lymphocytes % 9.5 % (15.3-44.8); MPV 9.8 fL (7.6-11.3); RBC Red Blood Cell Count 3.97 M/uL (4.33-5.43)
[2021-04-09 05:12] LABS: ALT/SGPT 44 U/L (12-78); AST/SGOT 32 U/L (15-37); Albumin 2.5 g/dL (3.4-5.0); Alkaline Phosphatase 40 U/L (45-117); BUN Blood Urea Nitrogen 27 mg/dL (7-18); Bicarbonate 27 mmol/L (21-32); Bilirubin Direct 0.1 mg/dL (0-0.2); Bilirubin Total 0.4 mg/dL (0.2-1.0); Ferritin 596.1 ng/mL (26-388); Glucose Level 137 mg/dL (74-106); Magnesium 2.6 mg/dL (1.8-2.4); Potassium 3.8 mmol/L (3.5-5.1); Protein, Total 6.9 g/dL (6.4-8.2); Sodium Level 142 mmol/L (136-145)
[2021-04-09] MEDS: METHYLPREDNISOLONE 125 MG INJ IV SCH ×2 (08:17→21:00)
[2021-04-09] MEDS: APIXABAN 5 MG TABLET PO SCH ×2 (08:17→21:00)
[2021-04-09] MEDS: THIAMINE HCL 100 MG TABLET PO SCH (08:17)
[2021-04-09] MEDS: ZINC SULFATE 220 MG CAP PO SCH (08:17)
[2021-04-09] MEDS: VITAMIN D 1000 UNIT TAB PO SCH (08:17)
[2021-04-09] MEDS: ASCORBIC ACID 500 MG TABLET PO SCH ×4 (08:17→21:00)
[2021-04-09] MEDS: ASPIRIN EC 81 MG TAB PO SCH (08:17)
[2021-04-09] MEDS ORDERED: POTASSIUM CL SA 10 MEQ TAB PO ONE (09:00)
--- NOTE | 2021-04-09 10:33 | P.PN ---
Subjective Date of Service: 04/09/21 Primary Care Provider: none Chief Complaint: COVID pneumonia Respiratory failure patient is improving oxygen requirements declining status post Actemra Review of Systems General: Weakness Respiratory: Shortness of Breath Physical Examination - Vital Signs Temperature: 97.5 F Blood Pressure: 130/82 Pulse: 85 Respirations: 30 Pulse Ox (%): 90 Assessment & Plan - Problems (Diagnosis) (1) COVID-19 Current Visit: Yes Status: Acute Plan: Respiratory failure patient is improving oxygen requirements declining status post the Actemra the reduce Solu-Medrol vital signs stable
--- NOTE | 2021-04-09 11:17 | P.PN ---
Subjective Date of Service: 04/09/21 Primary Care Provider: none Chief Complaint: COVID pneumonia Subjective: Improving, Other (Patient improving. Currently on high-flow at 50%.) Physical Examination - Vital Signs Temperature: 98.8 F Blood Pressure: 126/74 Pulse: 92 Respirations: 20 Pulse Ox (%): 93 Assessment & Plan Discharge Plan: Home Plan to discharge in: 48 Hours Physician Review Additional Text: Physical exam: Patient improved. Currently on high-flow 50%. Heart: Regular rate rhythm Lungs: Clear. High flow Abdomen: Soft nontender Extremities: Good range motion to upper lower extremities without any focal deficits. Mentation: Appropriate and at baseline Impression: Acute hypoxic respiratory failure secondary to COVID-19 pneumonia Hyperglycemia secondary to pre diabetes Acute renal insufficiency likely dehydration Obesity, BMI 45.6 Plan Acute hypoxic respiratory failure secondary to COVID-19 pneumonia: Patient continues to improve. Currently on 50% high-flow. Will wean off high-flow likely today. Will try to wean down below 4 L per nasal cannula over the next 24-48 hr. Continue IV steroids. Patient received packed marrow. Case discussed with pulmonology. CRP and ferritin improved. Patient on DVT prophylaxis. Anticipate possible discharge in the next 24-48 hr. Hyperglycemia secondary to pre diabetes: Hemoglobin A1c 5.8. Patient with pre diabetes. Continue to monitor closely. Size scale in place. Recommend to recheck hemoglobin A1c in 3-6 months to monitor his progress. Acute renal insufficiency likely dehydration: Overall improved. Patient back to baseline. Obesity, BMI 45.6: Will address lifestyle modification education. Time Spent Managing Pts Care (In Minutes): 55
[2021-04-10 05:26] LABS: ALT/SGPT 77 U/L (12-78); AST/SGOT 40 U/L (15-37); Albumin 2.6 g/dL (3.4-5.0); Alkaline Phosphatase 40 U/L (45-117); BUN Blood Urea Nitrogen 30 mg/dL (7-18); Bicarbonate 28 mmol/L (21-32); Bilirubin Direct 0.2 mg/dL (0-0.2); Bilirubin Total 0.5 mg/dL (0.2-1.0); Glucose Level 133 mg/dL (74-106); Potassium 4.1 mmol/L (3.5-5.1); Sodium Level 142 mmol/L (136-145)
[2021-04-10] MEDS: METHYLPREDNISOLONE 125 MG INJ IV SCH ×2 (08:26→20:55)
[2021-04-10] MEDS: ASCORBIC ACID 500 MG TABLET PO SCH ×4 (08:27→20:55)
[2021-04-10] MEDS: THIAMINE HCL 100 MG TABLET PO SCH (08:27)
[2021-04-10] MEDS: ZINC SULFATE 220 MG CAP PO SCH (08:27)
[2021-04-10] MEDS: VITAMIN D 1000 UNIT TAB PO SCH (08:27)
[2021-04-10] MEDS: ASPIRIN EC 81 MG TAB PO SCH (08:27)
[2021-04-10] MEDS: APIXABAN 5 MG TABLET PO SCH ×2 (08:27→20:55)
--- NOTE | 2021-04-10 08:31 | P.PN ---
Subjective Date of Service: 04/10/21 Primary Care Provider: none Chief Complaint: COVID pneumonia Subjective: Improving, Doing well Physical Examination - Vital Signs Temperature: 97 F Blood Pressure: 84/66 Pulse: 56 Respirations: 18 Pulse Ox (%): 95 Assessment & Plan Discharge Plan: Home Plan to discharge in: 24 Hours Physician Review Additional Text: Physical exam: Patient improved. Currently on high-flow 45%. Heart: Regular rate rhythm Lungs: Clear. Currently on high flow currently on high flow oxygen. Abdomen: Soft nontender Extremities: Good range motion to upper lower extremities without any focal deficits. Mentation: Appropriate and at baseline Impression: Acute hypoxic respiratory failure secondary to COVID-19 pneumonia Hyperglycemia secondary to pre diabetes Acute renal insufficiency likely dehydration Obesity, BMI 45.6 Plan Acute hypoxic respiratory failure secondary to COVID-19 pneumonia: Patient continues to improve. Currently on 50% high- Patient continues to improve. Currently on 45% high flow. Respiratory will try to wean down to nasal cannula. Anticipate continued improvement. Continue proning, incentive spirometer, and ambulation. Anticipate possible discharge tomorrow if he can be weaned down below 4 L per nasal cannula. Will make arrangements with psychiatric social worker supervisor for the patient to continue with home oxygen at discharge. Continue current medications. Patient would likely require prednisone, oral supplementation, and Eliquis at discharge. I will turn the service over the hospitalist team tomorrow. I will go plan of care with him. Hyperglycemia secondary to pre diabetes: Hemoglobin A1c 5.8. Patient with pre diabetes. Continue to monitor closely. Sliding scale in place. No need for medications at discharge. Recommend to recheck hemoglobin A1c in 3-6 months to monitor his progress. Acute renal insufficiency likely dehydration: Overall improved. Patient back to baseline. Obesity, BMI 45.6: Will address lifestyle modification education. DVT prophylaxis: Eliquis Time Spent Managing Pts Care (In Minutes): 55
[2021-04-11 05:54] LABS: C-Reactive Protein 3.03 mg/L (<3.00); Ferritin 665.3 ng/mL (26-388)
[2021-04-11] MEDS: THIAMINE HCL 100 MG TABLET PO SCH (08:56)
[2021-04-11] MEDS: APIXABAN 5 MG TABLET PO SCH ×2 (08:56→17:31)
[2021-04-11] MEDS: METHYLPREDNISOLONE 125 MG INJ IV SCH ×2 (08:56→17:31)
[2021-04-11] MEDS: VITAMIN D 1000 UNIT TAB PO SCH (08:56)
[2021-04-11] MEDS: ASCORBIC ACID 500 MG TABLET PO SCH ×3 (08:56→16:59)
[2021-04-11] MEDS: ZINC SULFATE 220 MG CAP PO SCH (08:56)
[2021-04-11] MEDS: ASPIRIN EC 81 MG TAB PO SCH (08:56)
[2021-04-11 13:30] VITALS: O2SAT 97
[2021-04-11 14:53] VITALS: TEMP 97.4
[2021-04-11 16:55] VITALS: BP 100/48
--- NOTE | 2021-04-18 03:27 | P.DS ---
Discharge Date: 04/11/21 Primary Care Provider: bubba Disposition: ROUTINE DISCHARGE Discharge Condition: GOOD Reason for Admission: COVID pneumonia Brief History of Present Illness: 25-year-old obese male without any significant past medical or surgical history presents emergency department for shortness of breath. Patient reports not feeling well since last , had COVID test today and was positive. Patient evaluated in the emergency department, patient noted to be hypoxic upon arrival to the emergency department with room air saturations in the 80s. Labs significant for potassium 3.2 creatinine 1.47 GFR 57 glucose 119 ferritin 881.2 C-reactive protein 105 pro calcitonin 0.08 chest x-ray demonstrates multifocal pneumonia. Patient initially was on nasal cannula but progressing required more oxygen during his emergency department stay and is now on BiPAP although he is tolerating this well at this time. ED provider wishes to admit for further evaluation and management. Hospital Course: Patient done well during hospital stay. Will taper dose of steroids. Continue with oxygen at discharge. Patient needs to quarantine for 10 more days. At this time, patient is stable for discharge home with outpatient follow-up. Vital Signs/Physical Exam: Temp Pulse Resp BP Pulse Ox 97.4 F 82 21 H 100/48 L 97 04/11/21 16:00 04/11/21 17:00 04/11/21 17:00 04/11/21 16:00 04/11/21 17:00 General: Alert, In no apparent distress, Oriented x3 Laboratory Data at Discharge: WBC 10.30 K/uL (4.3-10.9) D 04/09/21 04:17 Hgb 11.6 g/dL (13.6-17.9) L 04/09/21 04:17 Hct 35.1 % (39.6-49.0) L 04/09/21 04:17 Plt Count 287 K/uL (152-406) 04/09/21 04:17 Sodium 142 mmol/L (136-145) 04/10/21 04:35 Potassium 4.1 mmol/L (3.5-5.1) 04/10/21 04:35 BUN 30 mg/dL (7-18) H 04/10/21 04:35 Creatinine 0.87 mg/dL (0.55-1.3) 04/10/21 04:35 Glucose 133 mg/dL (74-106) H 04/10/21 04:35 Magnesium 2.6 mg/dL (1.8-2.4) H 04/09/21 04:17 Total Bilirubin 0.5 mg/dL (0.2-1.0) 04/10/21 04:35 AST 40 U/L (15-37) H 04/10/21 04:35 ALT 77 U/L (12-78) 04/10/21 04:35 Alkaline Phosphatase 40 U/L (45-117) L 04/10/21 04:35 Lipase 233 U/L (73-393) 04/05/21 20:45 Home Medications: Albuterol Inhaler [Ventolin Inhaler*] 2 puff IH Q6H PRN #1 hfa.aer.ad 04/11/21 Apixaban [Eliquis] 5 mg PO BID #20 tablet 04/11/21 Ascorbic Acid [Vitamin C*] 500 mg PO QID #30 tablet 04/11/21 Benzonatate [Tessalon Perle] 200 mg PO TID #30 cap 04/11/21 Cholecalciferol (Vitamin D3) [Vitamin D 1000 Iu Tab*] 4,000 unit PO DAILY #30 tab 04/11/21 Thiamine HCl [Vitamin B-1*] 200 mg PO DAILY #20 tablet 04/11/21 Zinc Sulfate [Zinc Sulfate*] 220 mg PO DAILY #30 cap 04/11/21 predniSONE [Deltasone] 20 mg PO BID #20 tab 04/11/21 New Medications: Apixaban [Eliquis] 5 mg PO BID #20 tablet predniSONE [Deltasone] 20 mg PO BID #20 tab Benzonatate [Tessalon Perle] 200 mg PO TID #30 cap Albuterol Inhaler [Ventolin Inhaler*] 2 puff IH Q6H PRN #1 hfa.aer.ad PRN Reason: Shortness Of Breath Thiamine HCl [Vitamin B-1*] 200 mg PO DAILY #20 tablet Ascorbic Acid [Vitamin C*] 500 mg PO QID #30 tablet Cholecalciferol (Vitamin D3) [Vitamin D 1000 Iu Tab*] 4,000 unit PO DAILY #30 tab Zinc Sulfate [Zinc Sulfate*] 220 mg PO DAILY #30 cap Physician Discharge Instructions: OK TO DC IV AND DC HOME FOLLOW-UP WITH PRIMARY CARE PROVIDER IN 1-2 WEEKS FOLLOW-UP WITH Pulmonary IN 1-2 WEEKS RETURN TO THE ER IF symptoms worsen CALL or TEXT DR. HUFF AT [phone] IF ANY QUESTIONS REGARDING HOSPITAL STAY. PLEASE CALL THE FLOOR AT [phone] IF ANY MEDICATION OR NURSING QUESTIONS. Diet: AHA Activity: Fall precautions Followup: Bethel Fontanez MD [ACTIVE - CAN ADMIT] - 1-2 Weeks NONE,NONE [Primary Care Provider] - Time spent managing pt's care (in minutes): 35
== END 2021-04-11 18:15 | disposition home or self-care (01) | DRG 177 ==
LOC: ER 19:28 → ERHOLD 21:11 → 3RD-ICU 04-08 20:57
PROVIDERS: ADMIT Family Medicine; ATTEND Hospitalist
PROC: 5A09557 Assistance with Respiratory Ventilation, Greater than 96 Consecutive Hours, Continuous Positive Airway Pressure (ICD-10-PCS; principal; 2021-04-05)
PROC: XW033E5 Introduction of Remdesivir Anti-infective into Peripheral Vein, Percutaneous Approach, New Technology Group 5 (ICD-10-PCS; 2021-04-06)
DX: U07.1 COVID-19 (principal); J12.82 Pneumonia due to coronavirus disease 2019; J96.01 Acute respiratory failure with hypoxia; Z68.42 Body mass index [BMI] 45.0-49.9, adult; E66.9 Obesity, unspecified; N28.9 Disorder of kidney and ureter, unspecified; E86.0 Dehydration; R73.9 Hyperglycemia, unspecified; R73.03 Prediabetes
CPT/HCPCS: 36415; 71045; 80048; 80053; 80076; 81003; 81015; 82248; 82728; 83036; 83605; 83690; 83735; 84145; 85025; 86140; 87086; 87088; 94002; 94003; 94660; 94760; 96361; 96374; 99285; J1650; J1720; J2920; J2930; J3262; J7030; J7050

== ENCOUNTER 2024-09-10 07:09 | Emergency (ER) | payer SELFPAY ==
--- OUTSIDE RECORDS SUMMARY | 2024-09-10 07:11 | XMS REPORT | Continuity of Care Document ---
Author Name Unknown Address [address] [place] [address] [employer] Address [address] [place] [address] [address] [place] [address] Care Team Providers Care [employer] Supervisor Name Role Phone Unavailable Unavailable Unavailable
--- NOTE | 2024-09-10 07:26 | EDPHYS ---
Physician Documentation [facility] Name: Richy Lazo Age: 29 yrs Sex: Male : 1995 Arrival Date: 09/10/2024 Time: 07:09 Bed 8 Private MD: ED Physician Joselo Monroe HPI: 09/10 07:42 This 29 yrs old Male presents to ER via EMS with complaints of Sinus rt Congestion, High Blood Pressure, Vomiting. 07:42 Patient presents to the ED with congestion starting today. Patient had 1 episode of rt vomiting today and the nurse at his work and noted that he was hypertensive. Patient states that has been out of his blood pressure medicines for about a month but is working on getting in with his primary care to get refills. Denies other acute complaints at this time, symptoms are mild in severity, no other aggravating or alleviating factors. Was sent to the ED for further check. . Historical: - Allergies: 07:22 No Known Allergies; iw - PMHx: 07:22 Hypertensive disorder; iw - PSHx: 07:22 None; iw - Immunization history:: Adult Immunizations not up to date. - Infectious Disease History:: Denies. - Social history:: Smoking status: Patient denies any tobacco usage or history of. - Family history:: not pertinent. ROS: 07:42 Constitutional: Negative for fever, chills, and weight loss, Cardiovascular: Negative rt for chest pain, palpitations, and edema, Respiratory: Negative for shortness of breath, cough, wheezing, and pleuritic chest pain, MS/Extremity: Negative for injury and deformity, Skin: Negative for injury, rash, and discoloration, Neuro: Negative for headache, weakness, numbness, tingling, and seizure, 07:42 ENT: Positive for rhinorrhea, Negative for sore throat, 07:42 Abdomen/GI: Positive for vomiting, Negative for abdominal pain, Exam: 07:42 Constitutional: This is a well developed, well nourished patient who is awake, alert, rt and in no acute distress. Head/Face: Normocephalic, atraumatic. Chest/axilla: Normal chest wall appearance and motion. Nontender with no deformity. No lesions are appreciated. Cardiovascular: Regular rate and rhythm with a normal S1 and S2. No gallops, murmurs, or rubs. Normal PMI, no JVD. No pulse deficits. Respiratory: Lungs have equal breath sounds bilaterally, clear to auscultation and percussion. No rales, rhonchi or wheezes noted. No increased work of breathing, no retractions or nasal flaring. Abdomen/GI: Soft, non-tender, with normal bowel sounds. No distension or tympany. No guarding or rebound. No evidence of tenderness throughout. Skin: Warm, dry with normal turgor. Normal color with no rashes, no lesions, and no evidence of cellulitis. MS/ Extremity: Pulses equal, no cyanosis. Neurovascular intact. Full, normal range of motion. Vital Signs: 07:18 BP 168 / 109; Pulse 97; Resp 18; Temp 97.6; Pulse Ox 97% ; Weight 153.31 kg; Height 5 iw ft. 8 in. ; Pain 0/10; 07:18 Body Mass Index 51.39 (153.31 kg, 172.72 cm) iw 07:18 Pain Scale: Adult iw MDM: 07:18 Medical Screening Exam initiated rt 07:42 Differential Diagnosis: Other URI, nasal congestion, essential hypertension. Data rt reviewed: vital signs, nurses notes. Test considered but Not performed: Other Details Patient has no chest pain, shortness of breath, normal abdominal examination with no further symptoms. Further workup to include CT scan, EKG are not indicated. Patient to follow-up as an outpatient.. Care significantly affected by the following chronic conditions: Hypertension. Counseling: I had a detailed discussion with the patient and/or guardian regarding the historical points, exam findings, and any diagnostic results supporting the discharge/admit diagnosis, the presence of at least one elevated blood pressure reading (>120/80) during this emergency department visit, the need for outpatient follow up, to return to the emergency department if symptoms worsen or persist or if there are any questions or concerns that arise at home. Administered Medications: No medications were administered Disposition Summary: 09/10/24 07:25 Discharge Ordered Notes: Location: Home rt Problem: new rt Symptoms: have improved rt Condition: Stable rt Diagnosis - Vomiting rt - Essential (primary) hypertension rt Followup: rt - With: Private Physician - When: Today - Reason: Discharge Instructions: - Discharge Summary Sheet rt - Hypertension, Adult rt - Vomiting, Adult rt Forms: - Work release form rt - Medication Reconciliation Form rt - Antibiotic Education rt - Prescription Opioid Use rt - Patient Portal Instructions rt - Leadership Thank You Letter rt Signatures: Cesia Garcia, RN RN iw Joselo Monroe MD MD rt
--- NOTE | 2024-09-10 07:26 | ER ---
Nurse's Notes [facility] Name: Richy Lazo Age: 29 yrs Sex: Male : 1995 Arrival Date: 09/10/2024 Time: 07:09 Bed 8 Private MD: Diagnosis: Vomiting;Essential (primary) hypertension Presentation: 09/10 07:18 Chief complaint: EMS states: pt has had allergies and sinus drainage, he ate breakfast iw this morning and vomited once, it was reported to his blanchard and he was required to get checked out. Coronavirus screen: At this time, the client does not indicate any symptoms associated with coronavirus-19. Ebola Screen: No symptoms or risks identified at this time. Risk Assessment: Do you want to hurt yourself or someone else? Patient reports no desire to harm self or others. Onset of symptoms was September 10, 2024. 07:18 Method Of Arrival: EMS: [facility] iw 07:18 Acuity: STONEY 3 iw 07:18 Initial Sepsis Screen: Does the patient meet any 2 criteria? No. Patient's initial iw sepsis screen is negative. Does the patient have a suspected source of infection? No. Patient's initial sepsis screen is negative. Historical: - Allergies: 07:22 No Known Allergies; iw - PMHx: 07:22 Hypertensive disorder; iw - PSHx: 07:22 None; iw - Immunization history:: Adult Immunizations not up to date. - Infectious Disease History:: Denies. - Social history:: Smoking status: Patient denies any tobacco usage or history of. - Family history:: not pertinent. Screenin:27 [facility] ED Fall Risk Assessment (Adult) History of falling in the last 3 months, iw including since admission No falls in past 3 months (0 pts) Confusion or Disorientation No (0 pts) Intoxicated or Sedated No (0 pts) Impaired Gait No (0 pts) Mobility Assist Device Used No (0 pt) Altered Elimination No (0 pt) Score/Fall Risk Level 0 - 2 = Low Risk Oriented to surroundings, Maintained a safe environment. Abuse screen: Denies threats or abuse. Nutritional screening: No deficits noted. Tuberculosis screening: No symptoms or risk factors identified. Assessment: 07:26 General: Appears in no apparent distress. Behavior is calm, cooperative. Pain: Denies iw pain. Neuro: Level of Consciousness is awake, alert, obeys commands, Oriented to person, place, time, situation, Moves all extremities. Full function. Respiratory: Respiratory effort is even, unlabored, Respiratory pattern is regular, symmetrical. Respiratory: Reports. GI: Abdomen is. GI: Reports nausea, vomiting. Derm: Skin is intact, is healthy with good turgor. Musculoskeletal: Range of motion: intact in all extremities. Vital Signs: 07:18 BP 168 / 109; Pulse 97; Resp 18; Temp 97.6; Pulse Ox 97% ; Weight 153.31 kg; Height 5 iw ft. 8 in. ; Pain 0/10; 07:18 Body Mass Index 51.39 (153.31 kg, 172.72 cm) iw 07:18 Pain Scale: Adult iw ED Course: 07:17 Patient arrived in ED. ph 07:18 Joselo Monroe MD is Attending Physician. rt 07:22 Triage completed. iw 07:26 Cesia Garcia, RN is Primary Nurse. iw 07:26 Arm band placed on. iw 07:26 Patient has correct armband on for positive identification. Provided Education on: POC. iw 08:00 No provider procedures requiring assistance completed. Patient did not have IV access iw during this emergency room visit. Administered Medications: No medications were administered Medication: 07:27 VIS not applicable for this client. iw Outcome: 07:25 Discharge ordered by MD. rt 08:02 Discharged to home ambulatory, iw 08:02 Condition: good 08:02 Discharge instructions given to patient, Instructed on discharge instructions, follow up and referral plans. Demonstrated understanding of instructions, follow-up care, 08:03 Patient left the ED. iw Signatures: Cesia Garcia RN RN Betzaida Newell RN RN Joselo Monroe MD MD rt Corrections: (The following items were deleted from the chart) 07:26 07:18 BP 168 / 109; Resp 18bpm; Pulse Ox 97%; Temp 97.6F; 153.31 kg; Height 5 ft. 8 iw in.; BMI: 51.3; Pain 0/10, Adult; iw
[2024-09-10 10:16] VITALS: BP 168/109; TEMP 97.6; O2SAT 97
== END 2024-09-10 08:03 | disposition home or self-care (01) ==
LOC: ER 07:09
DX: R11.10 Vomiting, unspecified (principal); I10 Essential (primary) hypertension
CPT/HCPCS: 99283